=== PATIENT | male | born 1990 | race Caucasian/White ===

== ENCOUNTER 2022-08-22 20:21 | Emergency (ER) | payer SELFPAY ==
--- NOTE | ~2022-08-22 | XR_ITS ---
XR chest 1V portable DATE: 08/22/2022 20:59 INDICATION: Fall. Seizure. Weakness. TECHNIQUE: Portable AP chest COMPARISON: None FINDINGS: Normal heart size. No hilar or mediastinal enlargement. No pulmonary infiltrate or consolid ation, pleural effusion or pulmonary vascular congestion or pneumothorax. IMPRESSION: No active cardiopulmonary disease Reviewed, dictated and finalized at location [facility].
--- NOTE | ~2022-08-22 | CT_ITS ---
EXAMINATION: CT cervical spine wo con DATE: 08/22/2022 20:52 INDICATION: Fall. Neck pain. TECHNIQUE: Computed tomography (CT) of the cervical spine was performed without intravenous contrast. Automated exposure control and iterative reconstruction technique were employed. Exam dose: 349.15 mGy-cm total exam DLP. COMPARISON: None FINDINGS: There is reversal of the cervical curvature which may be due to muscle spasm. C1 and C2 are normally aligned and the odontoid process is intact. No fracture or dislocation, locked facet or prevertebral soft tissue swelling is detected. There is moderately severe degenerative disc disease at C5-6 and C6-7. There is degenerative change at the uncovertebral joints in the mid and lower cervical spine.. IMPRESSION: Reversal of cervical curvature Cervical spondylosis No fracture or dislocation or locked facet Reviewed, dictated and finalized at [facility]. Reviewed, dictated and finalized at location [facility].
--- NOTE | ~2022-08-22 | XR_ITS ---
XR knee RT 3V DATE: 08/22/2022 20:59 INDICATION: Right knee pain TECHNIQUE: 3 views including crosstable lateral COMPARISON: None FINDINGS: No fracture or dislocation or joint effusion is detected. No periosteal reaction or bone de struction. Joint spaces are preserved. No radiopaque intra-articular loose body or chondrocalcinosis. IMPRESSION: Negative Reviewed, dictated and finalized at location A. IMPRESSION: Negative
--- NOTE | ~2022-08-22 | CT_ITS ---
EXAMINATION: CT brain wo con DATE: 08/22/2022 20:52 INDICATION: Fall. Seizure. Neck pain. TECHNIQUE: Computed tomography (CT) of the head was performed without intravenous contrast. The mA wa s adjusted according to patient size. Iterative reconstruction technique was employed. Exam dose: 68 1.00 mGy-cm total exam DLP. COMPARISON: None FINDINGS: No intracranial mass lesion or hemorrhage, midline shift or mass effect is detected. Normal ventricular size. No subdural or epidural hematoma. Normal alegria-white matter differentiation. No orbital mass lesion. There is a posterior opacified left ethmoid air cell. Otherwise the paranasal sinuses are well aerate d. There is limited development of the left mastoid air cells. There is significant of fusion of the left or right mastoid air cells. No fracture or bone destruction of the cranial vault. IMPRESSION: No skull fracture or significant intracranial abnormality Reviewed, dictated and finalized at [facility]. Reviewed, dictated and finalized at location A.
[2022-08-22 20:20] VITALS: BP 165/111; PULSE 115; RESP 18; TEMP 36.1; O2SAT 97
--- NOTE | 2022-08-22 20:22 | ECG_ITS ---
Measurements Intervals [place] Rate: 92 P: 11 ID: [id number] QRS: -21 QRSD: 79 T: 50 QT: 338 QTc: 420 Interpretive Statements SINUS RHYTHM DELAYED PRECORDIAL R/S TRANSITION BORDERLINE ECG NO PREVIOUS ECG AVAILABLE FOR COMPARISON Electronically Signed On 08-22-2022 21:37:07 CDT by Morris Maldonado D.O.
--- NOTE | 2022-08-22 20:26 | ED.GENADULT ---
HPI - General Adult General Chief complaint: Extremity Injury, Lower Stated complaint: SEIZURE History of Present Illness HPI narrative: This is a 32-year-old male with past medical history of alcohol abuse, brought in by EMS with concern for seizure-like activity. EMS reports that staff at the patient's workplace noted intermittent twitching of the hands, the patient was then found down outside a loading dock with full body convulsions. EMS reports patient had similar convulsions in route but he was able to answer all questions appropriately. Patient states he has had muscle cramps for the past 3 days, worse in the neck and the right leg. He complains of 8 out of 10 pain that does not radiate. He denies history of seizures, weakness/numbness, headache or other pain. He states he drinks approximately 14-16 drinks a day with his last drink this morning. Related Data Allergies Allergy/AdvReac Type Severity Reaction Status Date / Time No Known Allergies Allergy Verified 08/22/22 21:49 Review of Systems Review of Systems: CONSTITUTIONAL: Denies fever, chills, or sweats. EYES: Denies visual changes, redness, or discharge. ENT: Denies rhinorrhea, congestion, sore throat, or otalgia. CARDIOVASCULAR: Denies chest pain, palpitations, or edema. RESPIRATORY: Denies cough or dyspnea. GASTROINTESTINAL: nausea, vomiting Denies abdominal pain, or diarrhea. GENITOURINARY: Denies dysuria or hematuria. SKIN: Denies rash or itching. MUSCULOSKELETAL: Diffuse myalgia, neck pain denies back pain, joint pain NEUROLOGIC: Denies headache, numbness, dizziness, or weakness. PSYCHIATRIC: Denies anxiety or depression. PMFSH Past Medical History Medical History Alcohol abuse Social History Social History (Updated 08/22/22 @ 20:29 by Mitch Huang MD) Smoking status: Current some day smoker Alcohol intake: current Drinks per week: 98 Substance use: never Exam Narrative: GENERAL: Well-developed, well-nourished, appears uncomfortable, diaphoretic HEAD: Normocephalic, atraumatic. EYES: PERRLA and EOMI. ENT: Nares clear, no rhinorrhea or epistaxis. Mucous membranes moist. Oropharynx without tonsillar hypertrophy exudate or other lesions. NECK: Supple. Mild tenderness to the posterior spine without crepitus or step-off, no adenopathy or masses. No carotid bruits or JVD CHEST: Clear to auscultation. No respiratory distress. No wheezes rales or rhonchi HEART: Regular rate and rhythm. No murmur heard. Normal peripheral pulses. ABDOMEN: Soft, nontender, nondistended, normal active bowel sounds. EXTREMITIES: Normal range of motion. No edema. SKIN: Warm, dry, no rash. NEURO: No focal deficits. Alert and oriented x3. Sensation intact in all extremities, strength 5/5 in all extremities PSYCH: Normal mood and affect. Course Course Emergency Course: 21:35 - Lactic acid 14 with CK in the 600s. I suspect patient had a seizure due to alcohol withdrawal. Will obtain CIWA, give IV fluids and phenobarbital and anticipate admission. CT head negative for intracranial process. CT cervical spine negative for fracture. C-collar cleared by me. 21:40 - CIWA 20. Will discuss with hospitalist and special forces engineer sergeant for admission. 22:01 - Discussed patient with hospitalist, Dr. Ckoer and special forces engineer sergeant, Dr. Villegas, both of whom accept admission to ICU. 23:05 -patient now states he wants to leave AGAINST MEDICAL ADVICE. He is oriented x3. He states he does not want to stay in the hospital. Extensively discussed risks of departing including potential recurrent seizures, repeated injury, and disability. Patient voiced understanding and still wishes to go home. Patient's family is present at bedside, encouraging him to stay but he refuses. Discussed return emergency precautions including repeat seizures and injury. Patient voiced understanding and is willing to sign AMA paperwork. Vital Signs Vital signs: Vital Signs Temperature 96.9 F L 08/22/
[2022-08-22 20:44] LABS: Basophils Absolute Auto 0.1 K/mm3 (0.0-0.1); Basophils Percent Auto 0.5 % (0.2-1.2); Eosinophils Percent Auto 0.1 % (0-4.4); Hematocrit 50.2 % (42.0-52.0); Immature Granulocyte Absolute 0.07 K/mm3 (0.00-0.031); Immature Granulocyte Percent A 0.5 % (0-0.5); Lymphocytes Absolute Auto 0.98 K/mm3 (0.9-3.2); Lymphocytes Percent Auto 7.3 % (18.3-44.2); Mean Corpuscular HGB Conc 33.9 g/dl (32-36); Mean Corpuscular Hemoglobin 32.6 pg (26-34); Mean Corpuscular Volume 96.2 fl (80-100); Mean Platelet Volume 9.1 fl (7.4-10.4); Monocytes Absolute Auto 1.1 K/mm3 (0.1-0.6); Monocytes Percent Auto 7.9 % (2.6-8.5); Neutrophils Absolute Auto 11.3 K/mm3 (1.3-6.7); Neutrophils Percent Auto 83.7 % (45.5-73.1); Platelet Count Result 225 k/mm3 (150-375); Red Blood Count 5.22 M/mm3 (4.6-6.20); White Blood Count 13.5 K/mm3 (4.5-10.0)
[2022-08-22 20:54] LABS: Prothrombin Time 12.4 Seconds (11.1-14.7)
[2022-08-22 20:56] LABS: Ethanol < 10 mg/dL (<10)
[2022-08-22] MEDS: SODIUM CHLORIDE 0.9% IV 1,000 ML 999 ML IV CONT (20:59)
[2022-08-22] MEDS: PROCHLORPERAZINE EDISYLATE 10 MG/2 ML VIAL IV PUSH (20:59)
[2022-08-22 21:19] LABS: Alanine Aminotransferase 52 U/L (6-50); Albumin Level 5.5 g/dL (3.5-5.1); Alkaline Phosphatase 96 U/L (38-126); Anion Gap 32 mmol/L (8-16); Aspartate Amino Transferase 80 U/L (17-59); Bilirubin,Total 1.1 mg/dL (0.2-1.3); Blood Urea Nitrogen 11 mg/dL (9-20); Calcium 9.7 mg/dL (8.4-10.2); Carbon Dioxide 11 mmol/L (22-30); Chloride 98 mmol/L (98-107); Creatine Kinase 669 U/L (55-170); Estimated Glomerular Filt Rate > 60; Glucose 159 mg/dL (65-110); Potassium 3.2 mmol/L (3.4-5.0); Sodium 141 mmol/L (137-145)
[2022-08-22 21:24] LABS: Lactic Acid Reflex 14.6 mmol/L (0.7-2.0)
[2022-08-22] MEDS: PHENobarbitaL sodium (*CRX) 130 MG/ML VIAL 260 MG IV PUSH (22:00)
[2022-08-22] MEDS: SODIUM CHLORIDE 0.9% IV 1,000 ML 999 ML (22:00)
[2022-08-22 22:15] LABS: Fractional Inspired Oxygen 21 %; HCO3 VBG 21.7 mEq/l (24.0-30.0); PO2 VBG 58.5 mmHg (35.0-45.0)
[2022-08-22 22:16] LABS: pH VBG 7.462 (7.300-7.400)
[2022-08-22 22:16] LABS: Appearance Urine Clear (Clear); Bilirubin Urine 1+ (Negative); Blood Urine 3+ (Negative); Color Urine Yellow (Yellow); Glucose Urine UA Negative (Negative); Ketones Urine Trace mg/dL (Negative); Leukocyte Esterase Ur Negative LEU/UL (Negative); Nitrate Urine Negative (Negative); Protein Urine 3+ mg/dL (Negative); Specific Grav Ur >= 1.030 (1.001-1.035); Urobilinogen Urine 0.2 mg/dL (<2.0); pH Urine 5.5 (5.0-9.0)
[2022-08-22 22:17] LABS: Device ROOM AIR
[2022-08-22 22:20] LABS: Bacteria Urine Trace /hpf; Hyaline Casts Urine 20-29 /lpf; Mucus Urine Few /lpf; Squamous Epithelial Cell Urine Rare /hpf (Few)
[2022-08-22 22:21] LABS: Acetaminophen < 10 ug/mL (10-30); Add Urine Microscopic? YES; Salicylate < 1.0 mg/dL (2-20)
[2022-08-22] MEDS: FOLIC ACID 1 MG/0.2 ML INJ IV PUSH (22:26)
[2022-08-22 22:31] LABS: Amphetamine Screen Urine Negative (Negative); Barbiturate Screen Urine Negative (Negative); Benzodiazepines Screen Urine Negative (Negative); Cannabinoid Screen Urine Negative (Negative); Cocaine Screen Urine Negative (Negative); Methadone Screen Urine Negative (Negative); Opiate Screen Urine Negative (Negative); Phencyclidine Screen Urine Negative (Negative)
--- NOTE | 2022-08-22 22:55 | PC.NURSE ---
attempted to obtain covid swab for admission patient refused states he wants to leave. dr rodriguez notified and had long discussion with patient and family patient refused to be admitted repeatedly AMA form signed by patient
--- NOTE | 2022-08-22 23:10 | PM.IMHP ---
H&P: HPI History of Present Illness Date/Time: 08/22/22 23:10 Chief Complaint: altered mental status Narrative: This is a 32-year-old male with past medical history significant for alcohol dependence, tobacco dependence. 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 Patient was brought to to the emergency room he is unable to give any history received phenobarbital in emergency room patient had been in his usual state of health prior to this. Preliminary workup was significant for anion gap of 30, lactic acid of 14, creatinine 1.3 CPK 600 AST ALT 80 and 52 respectively high blood cell count was 13,000. patient is been admitted for further evaluation management and treatment. Review of Systems Review of Systems: ROS unobtainable: Yes unobtainable due to mental status PMFSH Past Medical History Medical History Alcohol abuse Social History Social History (Updated 08/22/22 @ 20:29 by Mitch Huang MD) Smoking status: Current some day smoker Alcohol intake: current Drinks per week: 98 Substance use: never Meds Home Medications and Allergies Allergies Allergy/AdvReac Type Severity Reaction Status Date / Time No Known Allergies Allergy Verified 08/22/22 21:49 Vital Signs Vital Signs - 24 hr 08/22/22 20:20 Temperature 96.9 F L Pulse Rate 115 H Respiratory Rate 18 Blood Pressure 165/111 H Pulse Oximetry 97 Oxygen Delivery Room Air Exam Narrative: patient is laying in a stretcher Const: General: comfortable, no acute distress, well developed, alert, awake and average body habitus Nutritional Appearance: average body habitus Orientation/consciousness: oriented to person, oriented to place and Other orientation findings ( delirious) HENMT: Head: normal to inspection, normocephalic and atraumatic Ears: hearing grossly normal bilaterally Face/Nose/Sinus: normal facial exam Face and sinus: normal facial exam Eyes: General: appearance normal, both eyes and all related structures Pupils: Equal, round and reactive pupils present EOM: EOMs intact bilaterally Neck: Neck: full ROM, no lymphadenopathy and no JVD Thyroid: thyroid normal Lymphatic: no lymphadenopathy noted Resp: Effort & Inspection: normal respiratory effort and able to speak in complete sentences Auscultation: clear to auscultation bilaterally Cardio: Jugular venous distension: no JVD Rate: regular rate Rhythm: regular rhythm Heart sounds: S1 normal heart sound present and S2 normal heart sound present GI: GI Palp: Yes Soft to palpation and Yes No hepatosplenomegaly present : General: Yes deferred Skin: Rashes: no rashes Wounds: no wounds Neuro: General: oriented to person, oriented to place, CN's II-XI intact bilaterally and other ( delirious) Cranial nerves: Yes CN's II-XII intact bilaterally and Yes Equal, round and reactive pupils present Cognition (Neuro): abnormal cognition ( delirious) Speech: normal speech Gait exam (Neuro): Unable to assess gait Motor exam (neuro): 5/5 motor strength present throughout Extrem: General: normal to inspection, full ROM, no joint enlargement and no pedal edema H&P: Results Labs Labs: Short CBC 08/22/22 Range/Units 20:37 WBC 13.5 H (4.5-10.0) K/mm3 Hgb 17.0 (14.0-18.0) g/dL Hct 50.2 (42.0-52.0) % Plt Count 225 (150-375) k/mm3 BMP 08/22/22 20:37 Sodium 141 Potassium 3.2 L Chloride 98 Carbon Dioxide 11 L BUN 11 Creatinine 1.30 Glucose 159 H Calcium 9.7 Cardiac Enzymes 08/22/22 Range/Units 20:37 Total Creatine Kinase 669 H (55-170) U/L Liver Function 08/22/22 Range/Units 20:37 Total Bilirubin 1.1 (0.2-1.3) mg/dL AST 80 H (17-59) U/L ALT 52 H (6-50) U/L Alkaline Phosphatase 96 (38-126) U/L Albumin 5.5 H (3.5-5.1) g/dL Urine 08/22/22 Range/Units 21:50 Urine Color Yellow (Yellow) Urine Appear
[2022-08-22 23:41] LABS: Reflex Lactic Acid Yes or No Add Lactic
== END 2022-08-22 23:06 | disposition left against medical advice (07) ==
LOC: ANHED 20:45 → ANHICU 23:05
PROVIDERS: Emergency Provider Preventive Medicine Aerospace Medicine
DX: F10.139 Alcohol abuse with withdrawal, unspecified (principal); G40.89 Other seizures; R11.2 Nausea with vomiting, unspecified; M79.10 Myalgia, unspecified site; E87.21 Acute metabolic acidosis; R74.8 Abnormal levels of other serum enzymes; F17.200 Nicotine dependence, unspecified, uncomplicated; R94.31 Abnormal electrocardiogram [ECG] [EKG]; M47.812 Spondylosis without myelopathy or radiculopathy, cervical region; Y90.0 Blood alcohol level of less than 20 mg/100 ml
CPT/HCPCS: 36415; 70450; 71045; 72125; 73562; 80053; 80307; 81001; 82550; 82803; 83605; 83930; 85025; 85610; 93005; 96361; 96374; 96375; 99284; J0780; J2560; J7030